=== PATIENT | female | born 1945 | race Caucasian/White ===

== ENCOUNTER 2017-12-06 16:50 | Emergency (ER) | payer MEDICARE, MEDICAID ==
[~2017-12-06] VITALS: Ht 154.9 cm; Wt 52.2 kg
[~2017-12-06 16:50] MED LIST: DIVA250T4 PO; LAMO5TAB3 PO
[2017-12-06 16:53] VITALS: BP 102/78
[2017-12-06] MEDS ORDERED: HYDROCODONE/APAP 5/325MG 1 EACH TABLET PO ONE (17:00)
[2017-12-06] MEDS ORDERED: ONDANSETRON 4 MG TAB.RAPDIS PO ONE (17:00)
[2017-12-06] MEDS ORDERED: HYDROCODONE/APAP 5/325MG 1 EACH TABLET ONE (17:04)
[2017-12-06] MEDS ORDERED: ONDANSETRON 4 MG TAB.RAPDIS ONE (17:05)
== END 2017-12-06 18:11 | disposition home or self-care (01) ==
LOC: ER 16:51
DX: S92.324A Nondisplaced fracture of second metatarsal bone, right foot, initial encounter for closed fracture (principal); G40.909 Epilepsy, unspecified, not intractable, without status epilepticus; Z98.890 Other specified postprocedural states; W01.0XXA Fall on same level from slipping, tripping and stumbling without subsequent striking against object, initial encounter; Y93.B9 Activity, other involving muscle strengthening exercises; Y92.009 Unspecified place in unspecified non-institutional (private) residence as the place of occurrence of the external cause; Y99.8 Other external cause status
CPT/HCPCS: 73630-TC; A4606; Q0162; Z7610

== ENCOUNTER 2017-12-08 14:04 | Emergency (ER) | payer MEDICARE, MEDICAID ==
[~2017-12-08] VITALS: Ht 162.6 cm; Wt 65.8 kg
--- NOTE | 2017-12-08 14:20 | NUR ---
[id number] FROM HOME FOR GENERALIZED BODY PAIN, S/P UNWITNESSED SEIZURE. FAMILY MEMBER AT AND REQUESTS PT TO BE TRANSFERRED TO A REHAB FOR DISCHARGE PT CANNOT TAKE CARE OF HERSELF. VSS. NO TRAUMA NOTED. PT AAOX3. SEEN BY MD FOR EVAL. SEZURE PRECAUTIONS IMPLEMENTED. WILL MONITOR.
[2017-12-08] MEDS ORDERED: LamoTRIgine 100 MG TABLET PO STA ×2 (15:06→15:47)
[2017-12-08] MEDS ORDERED: DIVALPROEX SODIUM 250 MG TABLET.DR PO ONE ×2 (15:17→15:30)
[2017-12-08 15:26] LABS: BASOPHILS % (AUTO) 0.5 % (0.0-2.0); EOSINOPHILS % (AUTO) 0.6 % (0.0-6.0); HEMATOCRIT 37 % (33-45); HEMOGLOBIN 12.9 g/dL (11.5-14.8); LYMPHOCYTES # (AUTO) 1.8 /CMM (0.8-4.8); LYMPHOCYTES % (AUTO) 26.8 % (20.0-44.0); MEAN CORPUSCULAR HGB CONC 35 g/dl (31.0-36.0); MEAN CORPUSCULAR VOLUME 97 fL (82-100); MONOCYTES # (AUTO) 0.4 /CMM (0.1-1.30); MONOCYTES % (AUTO) 6.2 % (2.0-12.0); NEUTROPHILS # (AUTO) 4.6 /CMM (1.8-8.9); NEUTROPHILS % (AUTO) 65.9 % (43.0-81.0); PLATELET COUNT (AUTO) 212 /CMM (150-450); RDW COEFFICIENT OF VARIATION 12.4 (11.5-15.0); RED BLOOD CELL COUNT(AUTO) 3.87 MIL/uL (4.0-5.2); WHITE BLOOD COUNT (AUTO) 6.8 K/uL (4.3-11.0)
[2017-12-08 15:35] LABS: CALCIUM, SERUM 9.1 mg/dL (8.5-10.1); CREATININE 0.9 mg/dL (0.6-1.3); POTASSIUM 4.3 mmol/L (3.5-5.1)
[2017-12-08 15:38] LABS: INR 0.91 (0.85-1.15)
--- NOTE | 2017-12-08 15:40 | NUR ---
PT TAKEN TO CT.
--- NOTE | 2017-12-08 16:30 | NUR ---
Patient is resting comfortably in bed with eyes closed. Easily aroused. VSS
--- NOTE | 2017-12-08 17:00 | NUR ---
PT'S SISTER SIMÓN AT AND GAVE HER NUMBER TO CALL HER WHEN PT IS BEING DISCHARGED FOR SIDING STAPLER.
--- NOTE | 2017-12-08 17:40 | NUR ---
CALLED PT'S SISTER SIMÓN FOR JOURNAL CLERK ACCORDING TO TO SISTER, SHE DOES NOT WANT TO JOURNAL CLERK THE PT AND WANTS THE HOSPITAL TO TRANSFER HER TO A REHAB. MD AWARE. CALLED OIL DEVELOPER.
--- NOTE | 2017-12-08 18:12 | NUR ---
Patient discharged to home in stable condition. Written and verbal after care instructions given. Patient verbalizes understanding of instruction. Sister, Susan at bedside for merchandise pickup/receiving associate.
[2017-12-08 18:14] VITALS: BP 141/65
== END 2017-12-08 18:14 | disposition home or self-care (01) ==
LOC: ER 14:08
DX: S80.01XA Contusion of right knee, initial encounter (principal); G40.909 Epilepsy, unspecified, not intractable, without status epilepticus; Z98.890 Other specified postprocedural states; W05.0XXA Fall from non-moving wheelchair, initial encounter; Y93.89 Activity, other specified; Y92.89 Other specified places as the place of occurrence of the external cause; Y99.8 Other external cause status
CPT/HCPCS: 36415; 70450; 71045; 72125; 80048; 80164; 85025; 85730; 99285; A4606; Z7610

== ENCOUNTER 2018-09-16 00:52 | Emergency (ER) | payer MEDICARE, MEDICAID ==
[~2018-09-16] VITALS: Ht 152.4 cm; Wt 52.6 kg
--- NOTE | 2018-09-16 01:00 | NUR ---
PT BIBRA C/O R WRIST PAIN S/P GLF. SKIN INTACT. -KO, -TRAUMA, DIZZINESS. PT AOX4. PT STATES "I WAS WALKING AND TRIPPED ON ACCIDENT". PT ON MONITOR IN BED 11. NAD NOTED. WILL CONTINUE TO MONITOR.
[2018-09-16] MEDS ORDERED: HYDROCODONE/APAP 5/325MG 1 EACH TABLET ONE (01:20)
--- NOTE | 2018-09-16 01:22 | NUR ---
RADIOLOGY AT BEDSIDE FOR XRAY
[2018-09-16] MEDS ORDERED: HYDROCODONE/APAP 5/325MG 1 EACH TABLET PO ONE (01:30)
--- NOTE | 2018-09-16 02:30 | NUR ---
SISTER (SIMÓN) CONTACT INFORMATION : ATTEMPTED TO CONTACT SISTER TO DEBONING TEAM LEADER PT, NO ANSWER, LEFT MESSAGE. WILL FOLLOW UP
--- NOTE | 2018-09-16 02:36 | NUR ---
SISTER (COLLIN) CONTACT INFORMATION: ATTEMPTED TO CONTACT SISTER TO JIG WORKER PT, NO ANSWER. WILL FOLLOW UP
--- NOTE | 2018-09-16 03:50 | NUR ---
ATTEMPTED TO CONTACT BOTH SISTERS TO RADIO PERFORMER PT, NO ANSWER. WILL FOLLOW UP
--- NOTE | 2018-09-16 04:17 | NUR ---
ATTEMPTED TO CALL BOTH SISTERS TO DENTAL ASSISTANT INSTRUCTOR PT, NO ANSWER. WILL FOLLOW UP
--- NOTE | 2018-09-16 05:51 | NUR ---
ATTEMPTED TO CONTACT BOTH SISTERS TO SECTION LEADER SCREEN PRINTING PT, NO ANSWER. WILL FOLLOW UP
--- NOTE | 2018-09-16 06:56 | NUR ---
ATTEMPTED TO CONTACT BOTH SISTERS TO CREDIT COLLECTION SPECIALIST PT, NO ANSWER. WILL FOLLOW UP
--- NOTE | 2018-09-16 07:03 | NUR ---
SISTER WILL COME TO CONCRETE STONE FINISHER PT AT 7:30
--- NOTE | 2018-09-16 07:27 | NUR ---
REPORT GIVEN TO YANIV SOTO RN FOR AROLDO
[2018-09-16 07:49] VITALS: BP 128/71
--- NOTE | 2018-09-16 07:49 | NUR ---
Patient discharged to home in stable condition. Written and verbal after care instructions given. Patient verbalizes understanding of instruction. Awaiting daughter for merchandise pickup/receiving associate.
== END 2018-09-16 08:26 | disposition home or self-care (01) ==
LOC: ER 00:55
DX: S52.591A Other fractures of lower end of right radius, initial encounter for closed fracture (principal); G40.909 Epilepsy, unspecified, not intractable, without status epilepticus; Z98.890 Other specified postprocedural states; W01.198A Fall on same level from slipping, tripping and stumbling with subsequent striking against other object, initial encounter; Y93.89 Activity, other specified; Y92.098 Other place in other non-institutional residence as the place of occurrence of the external cause; Y99.8 Other external cause status
CPT/HCPCS: 29125; 73110; 99283; A4606

== ENCOUNTER 2019-10-01 12:42 | Emergency (ER) | payer MEDICARE, OTHER ==
[~2019-10-01] VITALS: Ht 152.4 cm; Wt 53.5 kg
--- NOTE | 2019-10-01 12:45 | NUR ---
PT [facility]ETA [facility] HOME TO ER BED 04 C/O L SHOULDER PAIN S/P MISSING THE COUCH WHILE TRYING TO SIT DOWN. PT DENIES HEAD TRAUMA. PLACED ON MONITOR. MICHELLE MINA AT BEDSIDE FOR EVAL.
[2019-10-01] MEDS ORDERED: TRAMADOL HCL 50 MG TABLET ONE (12:52)
--- NOTE | 2019-10-01 12:55 | NUR ---
RADIOLOGY AT BEDSIDE FOR L SHOULDER/HUMERUS XRAY.
[2019-10-01] MEDS ORDERED: TRAMADOL HCL 50 MG TABLET PO ONE (13:00)
[2019-10-01] MEDS ORDERED: MORPHINE SULFATE INJ 2 MG/ML DISP.SYRIN ONE (13:28)
[2019-10-01] MEDS ORDERED: MORPHINE SULFATE INJ 2 MG/ML DISP.SYRIN IM ONE (13:30)
--- NOTE | 2019-10-01 13:45 | NUR ---
CALLED GUILLERMO ARNDT REAL ESTATE SERVICES COORDINATOR MARILYNN HECK
--- NOTE | 2019-10-01 13:58 | NUR ---
PT TO RADIOLOGY FOR L SHOULDER CT SCAN VIA [facility].
--- NOTE | 2019-10-01 15:21 | NUR ---
LESLIE ETA 45 MINUTES TRIP#[id number]
--- NOTE | 2019-10-01 16:29 | NUR ---
TRANSPORTED BACK HOME IN STABLE CONDITION.
[2019-10-01 16:30] VITALS: BP 139/59
== END 2019-10-01 16:30 | disposition home or self-care (01) ==
LOC: ER 12:47
DX: S42.212A Unspecified displaced fracture of surgical neck of left humerus, initial encounter for closed fracture (principal); G40.909 Epilepsy, unspecified, not intractable, without status epilepticus; Z98.890 Other specified postprocedural states; Z79.899 Other long term (current) drug therapy; W18.39XA Other fall on same level, initial encounter; Y93.89 Activity, other specified; Y92.89 Other specified places as the place of occurrence of the external cause; Y99.8 Other external cause status
CPT/HCPCS: 73030; 73060; 73200; 96372; 99284; J2270

== ENCOUNTER 2021-02-04 18:41 | Inpatient (IN) | payer MEDICARE, OTHER ==
[~2021-02-04] VITALS: Ht 152.4 cm; Wt 52.2 kg
[2021-02-04] MEDS ORDERED: ACETAMINOPHEN 325 MG TABLET ONE (20:28)
[2021-02-04] MEDS ORDERED: IBUPROFEN 400 MG TABLET ONE (20:29)
[2021-02-04] MEDS ORDERED: IBUPROFEN 400 MG TABLET PO ONE (20:30)
[2021-02-04] MEDS ORDERED: ACETAMINOPHEN 325 MG TABLET PO ONE (20:30)
--- NOTE | 2021-02-04 21:09 | NUR ---
TOOK OVER PT CARE. MEETA FROM HOME C/O L HAND PAIN S/P FALL. -LOC. ON MONITOR AND PULSE OX. IV INSERTED RH 20G, BLOOD COLLECTED, SENT TO LAB.
[2021-02-04] MEDS ORDERED: IV NS 0.9% 500 ML BAG IV ONE (21:30)
[2021-02-04 21:58] LABS: BASOPHILS % (AUTO) 0.4 % (0.0-2.0); EOSINOPHILS % (AUTO) 1.2 % (0.0-6.0); HEMATOCRIT 41 % (33-45); HEMOGLOBIN 13.2 g/dL (11.5-14.8); LYMPHOCYTES # (AUTO) 2.5 K/uL (0.8-4.8); LYMPHOCYTES % (AUTO) 33.5 % (20.0-44.0); MEAN CORPUSCULAR HGB CONC 33 g/dl (31.0-36.0); MEAN CORPUSCULAR VOLUME 103 fL (82-100); MONOCYTES # (AUTO) 0.6 K/uL (0.1-1.30); MONOCYTES % (AUTO) 7.7 % (2.0-12.0); NEUTROPHILS # (AUTO) 4.3 K/uL (1.8-8.9); NEUTROPHILS % (AUTO) 57.2 % (43.0-81.0); PLATELET COUNT (AUTO) 165 K/uL (150-450); RED BLOOD CELL COUNT(AUTO) 3.95 MIL/uL (4.0-5.2); WHITE BLOOD COUNT (AUTO) 7.6 K/uL (4.3-11.0)
--- NOTE | 2021-02-04 22:02 | NUR ---
EMT AT BEDSIDE FOR VOLAR 3 INCH SPLINT
[2021-02-04 22:07] LABS: BILIRUBIN,URINE NEGATIVE (NEGATIVE); COLOR,URINE YELLOW (YELLOW); LEUKOCYTE ESTERASE ,URINE MODERATE (NEGATIVE); NITRITE, URINE NEGATIVE (NEGATIVE); PH,URINE 6.5 (5.0-8.0); PROTEIN,URINE NEGATIVE (NEGATIVE); UGLUCOSE NEGATIVE (NEGATIVE); UROBILINOGEN,URINE 0.2 EU/dL (0.2)
[2021-02-04 22:12] LABS: BACTERIA,URINE 4+ /HPF (None Seen); RBC,URINE 21-50 /HPF (0-2); SQUAMOUS EPITHELIAL CELL,UR 0-2 /HPF (None Seen); WBC,URINE 51-80 /HPF (0-3)
[2021-02-04 22:13] LABS: CALCIUM OXALATE CRYSTALS,UR Many /HPF (None Seen)
[2021-02-04 22:16] LABS: CALCIUM, SERUM 8.9 mg/dL (8.5-10.1); CARBON DIOXIDE 27 mmol/L (21-32); CHLORIDE 106 mmol/L (98-107); GLUCOSE 106 mg/dL (74-106); SODIUM SERUM 141 mmol/L (136-145); UREA NITROGEN, BLOOD 23 mg/dL (7-18)
[2021-02-04 22:22] LABS: ALANINE AMINOTRANSFERASE < 6 U/L (12-78); ALBUMIN 2.9 g/dL (3.4-5.0); ALKALINE PHOSPHATASE 101 U/L (46-116); ASPARTATE AMINOTRANSFERASE 20 U/L (15-37); BILIRUBIN,DIRECT 0.1 mg/dL (0.0-0.2); BILIRUBIN,TOTAL 0.2 mg/dL (0.2-1.0); TOTAL PROTEIN, SERUM 7.6 g/dL (6.4-8.2)
[2021-02-04] MEDS ORDERED: CEFTRIAXONE 1 G in IV D5W 50 ML IV ONE (22:30)
[2021-02-04] MEDS ORDERED: CEFTRIAXONE 1GM BAG (ER ONLY) 50 ML IV ONE (22:39)
--- NOTE | 2021-02-04 22:39 | NUR ---
HALEYID SWABBED, SENT TO LAB.
[2021-02-04 22:51] LABS: BAND % (MANUAL) 2 % (0.0-5.0); BASOPHILS % (MANUAL) 0 % (0.0-2.0); EOSINOPHILS % (MANUAL) 2 % (0-4); LYMPHOCYTES % (MANUAL) 27 % (16-48); MONOCYTES % (MANUAL) 11 % (0-11.0); NEUTROPHILS % (MANUAL) 58 (42-76)
[2021-02-04] MEDS ORDERED: LamoTRIgine 100 MG TABLET PO SCH (23:00)
[2021-02-04] MEDS ORDERED: DIVALPROEX SODIUM 250 MG TABLET.DR PO ONE ×2 (23:00→23:06)
[2021-02-04] MEDS ORDERED: LamoTRIgine 100 MG TABLET ONE (23:13)
[2021-02-05] MEDS ORDERED: MAG HYDROX/AL HYDROX/SIMETH 30 ML UDC PO PRN (01:30)
[2021-02-05] MEDS ORDERED: ZOLPIDEM TARTRATE 5 MG TABLET PO PRN (01:30)
[2021-02-05] MEDS: CEFTRIAXONE 1 G in IV D5W 50 ML IV SCH (01:30)
[2021-02-05] MEDS ORDERED: Z GUARD REMEDY 2 OZ OINT TP PRN (01:30)
[2021-02-05] MEDS ORDERED: IV NS 0.9% 1,000 ML IV PRN (01:30)
[2021-02-05] MEDS ORDERED: ONDANSETRON HCL/PF 4 MG/2 ML VIAL IVP PRN (01:30)
[2021-02-05] MEDS ORDERED: MAGNESIUM HYDROXIDE 30 ML UDC PO PRN (01:30)
[2021-02-05] MEDS ORDERED: ACETAMINOPHEN 325 MG TABLET PO PRN (01:30)
[2021-02-05 04:38] LABS: BASOPHILS % (AUTO) 0.4 % (0.0-2.0); EOSINOPHILS % (AUTO) 1.3 % (0.0-6.0); HEMATOCRIT 40 % (33-45); HEMOGLOBIN 12.9 g/dL (11.5-14.8); LYMPHOCYTES # (AUTO) 3.4 K/uL (0.8-4.8); MEAN CORPUSCULAR HGB CONC 33 g/dl (31.0-36.0); MEAN CORPUSCULAR VOLUME 102 fL (82-100); MONOCYTES # (AUTO) 0.5 K/uL (0.1-1.30); MONOCYTES % (AUTO) 7.5 % (2.0-12.0); NEUTROPHILS # (AUTO) 3.2 K/uL (1.8-8.9); NEUTROPHILS % (AUTO) 43.8 % (43.0-81.0); PLATELET COUNT (AUTO) 173 K/uL (150-450); RED BLOOD CELL COUNT(AUTO) 3.88 MIL/uL (4.0-5.2); WHITE BLOOD COUNT (AUTO) 7.3 K/uL (4.3-11.0)
[2021-02-05 04:49] LABS: CALCIUM, SERUM 8.3 mg/dL (8.5-10.1); CREATININE 0.9 mg/dL (0.6-1.3); MAGNESIUM 2.1 mg/dL (1.8-2.4); PHOSPHORUS 3.2 mg/dL (2.5-4.9); POTASSIUM 4.4 mmol/L (3.5-5.1)
--- NOTE | 2021-02-05 06:40 | NUR ---
Patient is resting comfortably in bed with eyes closed. Easily aroused. WILL CONT TO MONITOR
--- NOTE | 2021-02-05 09:06 | NUR ---
PATIENT REASSESS VITAL STABLE DENIES PAIN STABLE FOR TRANSFER TO UNIT BED 325-1.
[2021-02-05] MEDS ORDERED: DIVALPROEX SODIUM 250 MG TABLET.DR PO ONE (09:09)
[2021-02-05] MEDS: DIVALPROEX SODIUM 250 MG TABLET.DR PO SCH ×3 (09:12→16:36)
--- NOTE | 2021-02-05 09:30 | NUR ---
RN NOTE PATIENT TRANSFERRED OVER TO [facility] IN STABLE CONDITION. PT IS ON RA WITH NO SOB OR RESPIRATORY DISTRESS PRESENT. A/O X3 AND ABLE TO MAKE NEEDS KNOWN. COMPLAINT OF PAIN 8/10 PRESENT ON L ARM. NO COMPLAINT OF NAUSEA. NO TRAVEL SERVICE CONSULTANT PRESENT. NO EDEMA PRESENT. PT USES WALKER AT HOME BUT CURRENTLY UNABLE TO AMBULATE DUE TO PAIN. L ARM IS IN SPLINT. ON 2GM SODIUM DIET. IV PRESENT ON R WRIST 20G AND FLUSHES WELL. LABS AND ORDERS REVIEWED. SAFETY MEASURES IN PLACE. SIDE RAILS RAISED. BED LOWERED. CALL LIGHT WITHIN REACH. WILL CONTINUE TO MONITOR.
[2021-02-05] MEDS: LamoTRIgine 100 MG TABLET PO SCH ×3 (09:50→16:36)
[2021-02-05] MEDS: MORPHINE SULFATE INJ 2 MG/ML DISP.SYRIN IV PRN ×2 (09:51→22:42)
[2021-02-05 10:00] VITALS: BP 167/76
[2021-02-05 16:00] VITALS: BP 151/75
--- NOTE | 2021-02-05 18:18 | NUR ---
RN CLOSING NOTE PT IS AWAKE IN BED RESTING. PT IS ON RA WITH NO SOB OR RESPIRATORY DISTRESS PRESENT. A/O X3 AND ABLE TO MAKE NEEDS KNOWN. NO COMPLAINT OF PAIN NO COMPLAINT OF NAUSEA. NO ROLLER MECHANIC PRESENT. NO EDEMA PRESENT. PT IS UNSTEADY GAIT AND AMBULATORY WITH ASSIST. DIAPER PRESENT. L ARM IS IN SPLINT. IV PRESENT ON R WRIST 20G AND FLUSHES WELL. LABS AND ORDERS REVIEWED. ROUTINE MESD GIVEN. SAFETY MEASURES IN PLACE. SIDE RAILS RAISED. BED LOWERED. CALL LIGHT WITHIN REACH. REPORT TO BE GIVEN TO NIGHT NURSE FOR AROLDO.
--- NOTE | 2021-02-05 20:00 | NUR ---
MS RN OPENING NOTES PATIENT RESTING IN BED, ALERT/ORIENTED X 3, PT ABLE TO MAKE NEEDS KNOWN. NO COMPLAINTS OF PAIN AT THIS TIME. PT STABLE ON RA, NO S/S OF DISTRESS OR SOB NOTED, BREATHING EVEN AND UNLABORED. RIGHT HAND IV INTACT AND FLUSHING WELL. LEFT ARM IN A SPLINT. PATIENT STATES SHE HAS NO NEEDS AT THIS TIME. SAFETY MEASURES IN PLACE: CALL LIGHT WITHIN REACH, BED LOCKED IN LOWEST POSITION, SIDE RAILS UP X 3, BED ALARM ON. WILL CONTINUE TO MONITOR PATIENT THROUGHOUT SHIFT.
[2021-02-05 20:35] VITALS: BP 156/70
[2021-02-06] MEDS: CEFTRIAXONE 1 G in IV D5W 50 ML IV SCH (00:37)
[2021-02-06] MEDS: MORPHINE SULFATE INJ 2 MG/ML DISP.SYRIN IV PRN ×2 (03:03→07:05)
[2021-02-06 06:12] LABS: BASOPHILS % (AUTO) 0.4 % (0.0-2.0); EOSINOPHILS % (AUTO) 1.3 % (0.0-6.0); HEMATOCRIT 40 % (33-45); HEMOGLOBIN 13.3 g/dL (11.5-14.8); LYMPHOCYTES # (AUTO) 2.3 K/uL (0.8-4.8); LYMPHOCYTES % (AUTO) 29.1 % (20.0-44.0); MEAN CORPUSCULAR HGB CONC 33 g/dl (31.0-36.0); MEAN CORPUSCULAR VOLUME 102 fL (82-100); MONOCYTES # (AUTO) 0.6 K/uL (0.1-1.30); MONOCYTES % (AUTO) 7.5 % (2.0-12.0); NEUTROPHILS # (AUTO) 4.9 K/uL (1.8-8.9); NEUTROPHILS % (AUTO) 61.7 % (43.0-81.0); PLATELET COUNT (AUTO) 183 K/uL (150-450); RED BLOOD CELL COUNT(AUTO) 3.92 MIL/uL (4.0-5.2)
[2021-02-06 06:34] LABS: CALCIUM, SERUM 8.8 mg/dL (8.5-10.1); CREATININE 0.9 mg/dL (0.6-1.3); PHOSPHORUS 3.3 mg/dL (2.5-4.9); POTASSIUM 4.2 mmol/L (3.5-5.1)
--- NOTE | 2021-02-06 07:23 | NUR ---
MS RN CLOSING NOTES PATIENT RESTING IN BED, ALERT/ORIENTED X 3, CONFUSED/FORGETFUL AT TIMES DURING SHIFT. PT STABLE ON RA, NO S/S OF DISTRESS OR SOB NOTED, BREATHING EVEN AND UNLABORED. RIGHT HAND IV INTACT AND RUNNING NS @ 50 ML/HR. LEFT ARM IN A SPLINT. MEDICATIONS GIVEN ORDERED, PATIENT NEEDS MET THROUGHOUT SHIFT. SAFETY MEASURES IN PLACE: CALL LIGHT WITHIN REACH, BED LOCKED IN LOWEST POSITION, SIDE RAILS UP X 3, BED ALARM ON. WILL ENDORSE TO DAY SHIFT NURSE FOR CONTINUITY OF CARE
--- NOTE | 2021-02-06 07:54 | NUR ---
MS RN OPENING NOTE PATIENT IS IN BED RESTING, PATIENT IS IN NO ACUTE DISTRESS. PATIENT IS ON ROOM AIR SATURATING WELL. SAFETY PRECAUTIONS ARE ON, BED IS LOCKED IN THE LOWEST POSITION WITH SIDE RAILS UP, CALL LIGHT WITHIN REACH. WILL CONTINUE TO MONITOR.
[2021-02-06 08:00] VITALS: BP 165/61
[2021-02-06] MEDS: CHLORHEXIDINE GLUCONATE 15 ML UDC MM SCH ×2 (09:48→17:30)
[2021-02-06] MEDS: LamoTRIgine 100 MG TABLET PO SCH ×3 (09:48→17:30)
[2021-02-06] MEDS: DIVALPROEX SODIUM 250 MG TABLET.DR PO SCH ×3 (09:48→17:31)
[2021-02-06] MEDS ORDERED: CHLO473M2 MM (14:46)
[2021-02-06] MEDS ORDERED: HYDR-3973 PO (14:46)
[2021-02-06] MEDS ORDERED: CEPH750C9 PO (14:46)
[2021-02-06] MEDS ORDERED: hydrALAZINE HCL 10 MG TABLET PO ONE (15:00)
--- NOTE | 2021-02-06 18:53 | NUR ---
MS RN CLOSING NOTE PATIENT IS IN BED RESTING, PATIENT IS IN NO ACUTE DISTRESS. PATIENT IS ON ROOM AIR SATURATING WELL. SAFETY PRECAUTIONS ARE ON, BED IS LOCKED IN THE LOWEST POSITION WITH SIDE RAILS UP, CALL LIGHT WITHIN REACH. ENDORSE PATIENT TO BALANCE SCREWHEAD POLISHER NURSE FOR AROLDO.
--- NOTE | 2021-02-06 19:15 | NUR ---
RN OPENING NOTES RECEIVED PT AWAKE IN BED, A/O X3. RESPIRATIONS EVEN/UNLABORED, ON ROOM AIR. SHE DENIES ANY PAIN OR DISCOMFORT AT THIS TIME. NOTED IV ACCESS ON R-HAND INTACT, PATENT AND FLUSHES WELL. PT IN NO ACUTE DISTRESS. SAFETY MEASURES IN PLACE, BED IN LOWEST LOCKED POSITION, S/R UP X2, CALL LIGHT WITHIN REACH. WILL CONTINUE TO MONITOR.
[2021-02-06 20:00] VITALS: BP 128/62
--- NOTE | 2021-02-07 00:30 | NUR ---
PT ENDORSED TO GPS RNTAM, FOR CONTINUITY OF CARE. PT IN STABLE CONDITION.
--- NOTE | 2021-02-07 00:45 | NUR ---
RN OPENING NOTES RECEIVED PT SLEEPING INTERMITTENTLY IN BED, NO ACUTE DISTRESS NOTED. RESPIRATIONS EQUAL AND UNLABORED. A/O X3. RESPIRATIONS EVEN/UNLABORED. STABLE ON ROOM AIR. DENIES PAIN AND/OR DISCOMFORT AT PRESENT TIME. IV ACCESS ON R-HAND INTACT AND PT IN NO ACUTE DISTRESS. LEFT ARM IN SPLINT. CAP REFILL LESS THAN 3 SEC TO EXTREMITY. SAFETY MEASURES IN PLACE, BED IN LOW AND LOCKED POSITION, SIDE RAILS UP X2, CALL LIGHT WITHIN REACH. WILL CONTINUE TO MONITOR.
[2021-02-07] MEDS: CEFTRIAXONE 1 G in IV D5W 50 ML IV SCH (01:44)
--- NOTE | 2021-02-07 07:30 | NUR ---
RN-NOTES RECEIVED PATIENT LYING IN BED AWAKE,ALERT X3,FORGETFUL AT TIMES ,NO ACUTE DISTRESS NOTED. ABLE TO MAKE NEEDS KNOWN. NEEDS MINIMAL ASSIST WITH ADL'S AND AMBULATION. WILL CONT. MONITORING FOR SAFETY.
[2021-02-07 09:26] LABS: CALCIUM, SERUM 8.6 mg/dL (8.5-10.1); CREATININE 0.9 mg/dL (0.6-1.3); PHOSPHORUS 2.7 mg/dL (2.5-4.9); POTASSIUM 3.7 mmol/L (3.5-5.1)
[2021-02-07 09:33] LABS: BASOPHILS % (AUTO) 0.5 % (0.0-2.0); EOSINOPHILS % (AUTO) 0.8 % (0.0-6.0); HEMATOCRIT 40 % (33-45); HEMOGLOBIN 13.4 g/dL (11.5-14.8); LYMPHOCYTES % (AUTO) 25.2 % (20.0-44.0); MEAN CORPUSCULAR HGB CONC 33 g/dl (31.0-36.0); MEAN CORPUSCULAR VOLUME 103 fL (82-100); MONOCYTES # (AUTO) 0.5 K/uL (0.1-1.30); NEUTROPHILS # (AUTO) 5.3 K/uL (1.8-8.9); NEUTROPHILS % (AUTO) 67.5 % (43.0-81.0); PLATELET COUNT (AUTO) 187 K/uL (150-450); RED BLOOD CELL COUNT(AUTO) 3.92 MIL/uL (4.0-5.2); WHITE BLOOD COUNT (AUTO) 7.8 K/uL (4.3-11.0)
[2021-02-07] MEDS: DIVALPROEX SODIUM 250 MG TABLET.DR PO SCH ×3 (10:41→16:22)
[2021-02-07] MEDS: LamoTRIgine 100 MG TABLET PO SCH ×3 (10:41→16:22)
[2021-02-07] MEDS: CHLORHEXIDINE GLUCONATE 15 ML UDC MM SCH ×2 (10:41→16:22)
--- NOTE | 2021-02-07 19:15 | NUR ---
MS/RN OPENING NOTE RECEIVED PATIENT RESTING IN BED. AWAKE, ALERT AND ORIENTED X 2-3. ABLE TO MAKE NEEDS KNOWN. DENIES PAIN AT THIS TIME. CONTINUES ON ROOM AIR WITH NO S/SX OF RESPIRATORY DISTRESS NOTED. IV ACCESS TO RIGHT HAND #20G INTACT, PATENT AND SALINE LOCKED. CONTINUES ON ABX ROCEPHIN FOR UTI. PATIENT IS TO DISCHARGE TODAY AT 19:30 WITH [facility]. CALL LIGHT WITHIN REACH. ASPIRATION, FALL AND SAFETY PRECAUTIONS MAINTAINED. WILL CONTINUE TO MONITOR.
[2021-02-07 20:00] VITALS: BP 135/55
--- NOTE | 2021-02-07 20:09 | NUR ---
MS/DRYWALL HANGER NOTE PATIENT DISCHARGED TO HOME VIA [facility]. IV REMOVED FROM RIGHT HAND WITH PRESSURE DRESSING APPLIED. PATIENT TOLERATED WELL. ID BAND REMOVED. REVIEWED ALL DISCHARGE PAPERWORK WITH PATIENT. DISCHARGE PAPERWORK AND BELONGINGS LIST SIGNED. ALL BELONGINGS ACCOUNTED FOR AT DISCHARGE. PATIENT LEFT FACILITY VIA GURNEY AND 2 INSTITUTION DIRECTOR. Addendum: 02/07/21 at 2016 by CRISTELA GALINDO RN VITAL SIGNS AT DISCHARGE: BP 135/55 HR 81 RR 18 T 97.8 O2 SAT 96% ON ROOM AIR
== END 2021-02-07 20:00 | disposition home or self-care (01) | DRG 563 ==
LOC: ER 18:46 → TRANSITION 02-05 02:30 → MED 02-05 08:49
PROVIDERS: ADMIT Nurse Practitioner Acute Care; ATTEND Registered Nurse
DX: S62.391A Other fracture of second metacarpal bone, left hand, initial encounter for closed fracture (principal); N39.0 Urinary tract infection, site not specified; N17.9 Acute kidney failure, unspecified; E44.0 Moderate protein-calorie malnutrition; Y92.009 Unspecified place in unspecified non-institutional (private) residence as the place of occurrence of the external cause; G40.909 Epilepsy, unspecified, not intractable, without status epilepticus; E88.09 Other disorders of plasma-protein metabolism, not elsewhere classified; Z68.22 Body mass index [BMI] 22.0-22.9, adult; Z20.822 Contact with and (suspected) exposure to COVID-19; W01.0XXA Fall on same level from slipping, tripping and stumbling without subsequent striking against object, initial encounter; Z79.899 Other long term (current) drug therapy; N28.1 Cyst of kidney, acquired; I25.10 Atherosclerotic heart disease of native coronary artery without angina pectoris; Z98.890 Other specified postprocedural states; B96.89 Other specified bacterial agents as the cause of diseases classified elsewhere
CPT/HCPCS: 36415; 70450-TC; 73130-TC; 80048-TC; 80061-TC; 80076-TC; 80164-TC; 81001; 83735-TC; 84100-TC; 84484-TC; 85025-TC; 87040-TC; 87081-TC; 87086-TC; 87186-TC; 97112-TC; 97116-TC; 97530-TC; C9803; G0378; J0696; J2270; J2405; J7030; J7040; J7060

== ENCOUNTER 2021-09-12 01:42 | Inpatient (IN) | payer MEDICARE, OTHER ==
[~2021-09-12] VITALS: Ht 154.9 cm; Wt 53.1 kg
[~2021-09-12 01:42] MED LIST changes: +CEPH750C9 PO; +CHLO473M2 MM; +HYDR-3973 PO
--- NOTE | 2021-09-12 01:47 | NUR ---
MEETA FROM [facility] C/O LOWER BACK PAIN S/P UNWITNESSED GLF "WALKER SLIPPED OUT FROM UNDER ME LANDED ON MY BUTT" -HT. NEUROCHECK DONE. LOC WNL. NO DISCOLORATION, ABNORMALITIES, EXTENSION, ROTATION, OR SHORTENING NOTED. TO EXTREMITIES. CONNECTED PT TO POX AND MONITOR. SAFETY MEASURES IN PLACE.
--- NOTE | 2021-09-12 01:55 | NUR ---
PT TAKEN TO CT VIA [facility]
--- NOTE | 2021-09-12 03:16 | NUR ---
R HAND #20G S/L PATENT AND INTACT. BLOOD AND COVID ANTIGEN COLLECTED AND SENT TO LAB
[2021-09-12] MEDS ORDERED: ONDANSETRON HCL/PF 4 MG/2 ML VIAL ONE (03:20)
[2021-09-12] MEDS ORDERED: MORPHINE SULFATE INJ 4 MG/ML DISP.SYRIN ONE (03:20)
[2021-09-12] MEDS ORDERED: MORPHINE SULFATE INJ 2 MG/ML DISP.SYRIN IM ONE (03:30)
[2021-09-12] MEDS ORDERED: ONDANSETRON HCL/PF 4 MG/2 ML VIAL IV ONE (03:30)
[2021-09-12 03:31] LABS: BASOPHILS % (AUTO) 0.3 % (0.0-2.0); EOSINOPHILS % (AUTO) 0.1 % (0.0-6.0); HEMATOCRIT 41 % (33-45); HEMOGLOBIN 13.2 g/dL (11.5-14.8); LYMPHOCYTES # (AUTO) 2.1 K/uL (0.8-4.8); LYMPHOCYTES % (AUTO) 14.3 % (20.0-44.0); MEAN CORPUSCULAR HGB CONC 33 g/dl (31.0-36.0); MEAN CORPUSCULAR VOLUME 100 fL (82-100); MONOCYTES # (AUTO) 0.9 K/uL (0.1-1.30); MONOCYTES % (AUTO) 6.1 % (2.0-12.0); NEUTROPHILS # (AUTO) 11.5 K/uL (1.8-8.9); NEUTROPHILS % (AUTO) 79.2 % (43.0-81.0); PLATELET COUNT (AUTO) 166 K/uL (150-450); RED BLOOD CELL COUNT(AUTO) 4.06 MIL/uL (4.0-5.2); WHITE BLOOD COUNT (AUTO) 14.5 K/uL (4.3-11.0)
[2021-09-12 03:50] LABS: CALCIUM, SERUM 8.7 mg/dL (8.5-10.1); CARBON DIOXIDE 27 mmol/L (21-32); CHLORIDE 106 mmol/L (98-107); CREATININE 0.8 mg/dL (0.6-1.3); GLUCOSE 125 mg/dL (74-106); POTASSIUM 4.7 mmol/L (3.5-5.1); SODIUM SERUM 140 mmol/L (136-145); UREA NITROGEN, BLOOD 26 mg/dL (7-18)
--- NOTE | 2021-09-12 04:10 | NUR ---
F/C 16 FR INSERTED WITH URINE OUTPUT; PATENT AND INTACT. URINE COLLECTED AND SENT TO LAB
--- NOTE | 2021-09-12 04:15 | NUR ---
[facility] PAGED
--- NOTE | 2021-09-12 04:20 | NUR ---
MOVE SHEET SUBMITTED.
[2021-09-12 04:24] LABS: BILIRUBIN,URINE NEGATIVE (NEGATIVE); COLOR,URINE YELLOW (YELLOW); LEUKOCYTE ESTERASE ,URINE NEGATIVE (NEGATIVE); NITRITE, URINE NEGATIVE (NEGATIVE); PROTEIN,URINE NEGATIVE (NEGATIVE); UGLUCOSE NEGATIVE (NEGATIVE); UROBILINOGEN,URINE 0.2 EU/dL (0.2)
--- NOTE | 2021-09-12 04:30 | NUR ---
PER RN SUP PT TO TRANSFER AFTER CHANGE OF SHIFT; AWAITING ROOM
[2021-09-12] MEDS ORDERED: CRAN425C6 PO (04:40)
[2021-09-12] MEDS ORDERED: MIRT-90 PO (04:40)
[2021-09-12] MEDS ORDERED: LATA2.5D2 OP (04:40)
[2021-09-12] MEDS ORDERED: MAGN400O6 GT (04:40)
--- NOTE | 2021-09-12 04:50 | NUR ---
MRSA SWAB COLLECTED VIA L NARE AND SENT TO LAB
[2021-09-12] MEDS ORDERED: Z GUARD REMEDY 4 OZ OINT TP PRN (05:00)
[2021-09-12] MEDS ORDERED: HYDROCODONE/APAP 5/325MG TABLET PO PRN (05:00)
[2021-09-12] MEDS ORDERED: MAGNESIUM HYDROXIDE 30 ML UDC PO PRN (05:00)
[2021-09-12] MEDS ORDERED: ACETAMINOPHEN 325 MG TABLET PO PRN (05:00)
--- NOTE | 2021-09-12 05:04 | NUR ---
MARY SWARTZ ON PHONE CALL WITH GUILLERMO MINA
--- NOTE | 2021-09-12 05:45 | NUR ---
RN INFORMED ABI MINA (ORTHOPEDIC WORKING WITH DR. WISDOM) OF PT FOR CONSULT VIA PHONE CALL
[2021-09-12 08:48] LABS: RBC,URINE 15-25 /HPF (0-2)
[2021-09-12 08:49] LABS: BACTERIA,URINE None seen /HPF (None Seen); SQUAMOUS EPITHELIAL CELL,UR None Seen /HPF (None Seen)
--- NOTE | 2021-09-12 09:22 | NUR ---
GOT BED 117-1
--- NOTE | 2021-09-12 09:32 | NUR ---
REPORT GIVEN TO RUSTAM JAIME OF [facility] UNIT
[2021-09-12] MEDS: LamoTRIgine 100 MG TABLET PO SCH ×4 (10:00→16:15)
[2021-09-12] MEDS: CHLORHEXIDINE GLUCONATE 15 ML UDC MM SCH ×2 (10:00→16:15)
[2021-09-12] MEDS ORDERED: TAMSULOSIN 0.4 MG CAP.SR.24H PO SCH (10:00)
[2021-09-12] MEDS: PANTOPRAZOLE 40 MG TABLET.DR PO SCH (10:00)
[2021-09-12] MEDS: DIVALPROEX SODIUM 250 MG TABLET.DR PO SCH ×4 (10:00→16:15)
--- NOTE | 2021-09-12 10:05 | NUR ---
TRANSFERRED TO BED 117 IN STABLE CONDITION
--- NOTE | 2021-09-12 10:11 | NUR ---
TETRYL BOILING TUB OPERATOR NOTE RECEIVED PATIENT VIA GURNEY FROM ER. PATIENT IS A/O X4. PATIENT IS BREATHING EVENLY AND NONLABORED ON ROOM AIR. NO SIGNS OF DISTRESS NOTED. PATIENT IS COMPLAINING OF SEVERE BACK PAIN 10/10 MOANING AND GRIMACING. WILL GIVE PRN PAIN MEDICATION ORDERED. PATIENT ASKED TO NOT HAVE ANY MEDICATION AT THIS TIME UNTIL LATER TODAY. EXPLAINED RISK AND BENEFITS PATIENT REFUSED X2. PATIENT SKINS C/D/I. PATIENT IS PLACED ON TELE MONITORING. PATIENT NOTED WITH QUARLES CATHETER DRAINING CLEAR YELLOW URINE. PATIENTS ABDOMEN SOFTER NONTENDER. LOWER EXTREMITY WEAKNESS NOTED DUE TO PAIN AND DISCOMFORT. PATIENT WAS ORIENTED TO THE ROOM AND HOW TO USED THE CALL LIGHT. SAFETY MEASURES IN PLACE BED LOW LOCKED CALL LIGHT WITHIN REACH. WILL CONTINUE TO MONITOR
[2021-09-12] MEDS: MORPHINE SULFATE INJ 2 MG/ML DISP.SYRIN IV PRN ×2 (10:17→14:35)
[2021-09-12] MEDS: IV 1/2NS 1000 ML 1,000 ML IV PRN (10:18)
[2021-09-12 10:54] VITALS: BP 155/84
[2021-09-12] MEDS: HYDROCODONE/APAP 5/325MG TABLET PO PRN (17:14)
--- NOTE | 2021-09-12 18:31 | NUR ---
RN CLOSING NOTE PATIENT LYING IN BED AWAKE. PATIENT IS A/O X4. PATIENT IS BREATHING EVENLY AND NONLABORED ON ROOM AIR. NO SIGNS OF DISTRESS NOTED. PATIENT COMPLAINED OF SEVERE BACK PAIN THROUGHOUT SHIFT, GAVE PRN MEDICATION ORDERED, MD AWARE VITALS MAINTAINED WNL. PATIENT ON TELE MONITORING. PATIENT NOTED WITH QUARLES CATHETER DRAINING CLEAR YELLOW URINE. PATIENTS HAS IV ACCESS TO L FOREARM 24 GAUGE PATENT AND INTACT RUNNING 1/2 NS @ 85 ML/HR. ALL MEDICATIONS GIVEN ORDERED. SAFETY MEASURES IN PLACE BED LOW LOCKED CALL LIGHT WITHIN REACH. WILL ENDORSE TO ONCOMING SHIFT
--- NOTE | 2021-09-12 19:37 | NUR ---
TELE OPENING NOTE PATIENT AWAKE IN BED. A/OX4. NO S/S OF DISTRESS. O2 SAT AT 89-91. SHE WAS GIVEN A NC W/ 2L BRINGING HER BACK TO 96%. RFA #24 INTACT AND PATENT W/ 1/2NS 85ML/HR. TELE MONITOR REVEALS SR93. SAFETY MEASURES IN PLACE: BED AT LOWEST POSITION, RAILS UP X2, CALL AGUILAR WITHIN REACH. WILL CONTINUE TO MONITOR PATIENT.
[2021-09-12 20:00] VITALS: BP 142/55
[2021-09-12] MEDS: TAMSULOSIN 0.4 MG CAP.SR.24H PO SCH (21:41)
[2021-09-12] MEDS: LATANOPROST EYE DROP 0.005% 2.5 ML BOTTLE OP SCH (21:42)
[2021-09-12] MEDS: MIRTAZAPINE 15 MG TABLET PO SCH (21:42)
[2021-09-12] MEDS: ONDANSETRON HCL/PF 4 MG/2 ML VIAL IVP PRN (22:26)
--- NOTE | 2021-09-12 22:30 | NUR ---
RN NOTE PATIENT WAS FOUND VOMITING. PATIENT WAS PLACED IN MID-FOWLERS POSITION, AND SHE IS CURRENTLY STABLE. ZOFRAN GIVEN (SEE eMAR). PATIENT CLEANED UP. PATIENT HAS PREVIOUSLY REFUSED TO BE REPOSITIONED, BUT SOMETIMES IS COMPLIANT; SHE IS FOR NOW IN THIS REGARD. HER O2 STARTED TO DECREASE, BUT WAS ABLE TO BE RECTIFIED BY NC 2L (96-98%). PATIENT REMOVES NC. SHE IS STILL A/OX4. SHE DOESN'T WANT MACHINES, LIKE VS MACHINE, TO BE NEAR HERE BECAUSE OF THE BEEPING, BUT I HAVE EXPLAINED TO HER THE NECESSITY OF THE MACHINE AND AM ABLE TO USE IT TO MONITOR HER. PATIENT IS MOSTLY NON-COMPLIANT. SHE IS REFUSING IVF, BUT I WILL CONTINUE TO RE-EDUCATE THE PATIENT AND ENCOURAGE HER TO UTILIZE IVF. I WILL CONTINUE TO MONITOR THE PATIENT.
[2021-09-13] VITALS: BP 123/60
[2021-09-13 04:00] VITALS: BP 147/55
--- NOTE | 2021-09-13 06:59 | NUR ---
TELE CLOSING NOTE PATIENT IS AWAKE IN BED. A/OX4. NO S/S OF DISTRESS. BREATHING W/O DIFFICULTLY. RFA #24 W/ 1/2NS@85ML/HR. TELE MONITOR REVEALS SR80. SAFETY MEASURES IN PLACE: BED AT LOWEST LEVEL, RAILS UP X2, CALL AGUILAR WITHIN REACH. WILL ENDORSE TO FOLLOWING SHIFT FOR AROLDO.
[2021-09-13 07:02] LABS: BASOPHILS % (AUTO) 0.2 % (0.0-2.0); EOSINOPHILS % (AUTO) 1.1 % (0.0-6.0); HEMATOCRIT 41 % (33-45); HEMOGLOBIN 13.2 g/dL (11.5-14.8); LYMPHOCYTES # (AUTO) 1.6 K/uL (0.8-4.8); LYMPHOCYTES % (AUTO) 16.4 % (20.0-44.0); MEAN CORPUSCULAR HGB CONC 32 g/dl (31.0-36.0); MEAN CORPUSCULAR VOLUME 103 fL (82-100); MONOCYTES # (AUTO) 0.5 K/uL (0.1-1.30); MONOCYTES % (AUTO) 5.6 % (2.0-12.0); NEUTROPHILS # (AUTO) 7.3 K/uL (1.8-8.9); NEUTROPHILS % (AUTO) 76.7 % (43.0-81.0); PLATELET COUNT (AUTO) 149 K/uL (150-450); WHITE BLOOD COUNT (AUTO) 9.5 K/uL (4.3-11.0)
[2021-09-13 07:04] LABS: CALCIUM, SERUM 8.3 mg/dL (8.5-10.1); CREATININE 0.8 mg/dL (0.6-1.3); MAGNESIUM 2.3 mg/dL (1.8-2.4); PHOSPHORUS 3.1 mg/dL (2.5-4.9); POTASSIUM 4.9 mmol/L (3.5-5.1)
--- NOTE | 2021-09-13 07:30 | NUR ---
NETWORK ASSOCIATE OPENING NOTES RECEIVED PATIENT AWAKE IN BED AND A/OX4. ON O2 AT 2LPM VIA NASAL CANNULA TOLERATING WELL. NO SOB NOTED. NOT IN DISTRESS. WITH COMPLAINTS OF PAIN AT THE SCALE OF 8/10 AT THE LOWER BACK. COMFORT MEASURES PROVIDED. WITH IV ACCESS AT RIGHT FOREARM G24 INTACT AND PATENT WITH IVF 1/2NS AT 85ML/HR INFUSING WELL. ON TELE MONITOR CURRENTLY READING SR AT 93BPM. SAFETY MEASURES IN PLACE: BED AT LOWEST POSITION, RAILS UP X2, CALL LIGHT WITHIN REACH. WILL CONTINUE TO MONITOR.
[2021-09-13 08:00] VITALS: BP 160/70
[2021-09-13] MEDS: CHLORHEXIDINE GLUCONATE 15 ML UDC MM SCH ×2 (08:23→16:44)
[2021-09-13] MEDS: LamoTRIgine 100 MG TABLET PO SCH ×3 (08:23→16:44)
[2021-09-13] MEDS: DIVALPROEX SODIUM 250 MG TABLET.DR PO SCH ×3 (08:23→16:44)
[2021-09-13] MEDS: PANTOPRAZOLE 40 MG TABLET.DR PO SCH (08:23)
[2021-09-13] MEDS: MORPHINE SULFATE INJ 2 MG/ML DISP.SYRIN IV PRN ×3 (08:32→16:03)
--- NOTE | 2021-09-13 08:32 | NUR ---
RN NOTES PATIENT IS COMPLAINING OF PAIN AT THE LOWER BACK AT THE SCALE OF 8/10 AND ASKED FOR PAIN MEDICATION. MORPHINE 4MG IV WAS GIVEN. WILL CONTINUE TO MONITOR.
[2021-09-13 12:00] VITALS: BP 101/40
[2021-09-13] MEDS: IV 1/2NS 1000 ML 1,000 ML IV PRN (15:38)
[2021-09-13 16:00] VITALS: BP 131/62
--- NOTE | 2021-09-13 18:28 | NUR ---
GUN STOCK CHECKER CLOSING NOTES PATIENT RESTING ON BED AND A/OX4. ON O2 AT 2LPM VIA NASAL CANNULA TOLERATING WELL. NO SOB NOTED. NOT IN DISTRESS. WITH NO COMPLAINTS OF PAIN AT THIS TIME. WITH IV ACCESS AT RIGHT FOREARM G24 INTACT AND PATENT WITH IVF 1/2NS AT 85ML/HR INFUSING WELL. ON TELE MONITOR CURRENTLY READING SINUS RHYTHM AT 91BPM. DUE MEDS GIVEN. WITH QUARLES CATHETER IN PLACED WITH AN OUTPUT OF 750ML. SAFETY MEASURES IN PLACE: BED AT LOWEST POSITION, RAILS UP X2, CALL LIGHT WITHIN REACH. WILL ENDORSE TO NEXT SHIFT FOR AROLDO.
--- NOTE | 2021-09-13 19:10 | NUR ---
RN NOTES RECEIVED PATIENT ON BED AWAKE AND A/O X2-3 WITH PERIODS OF CONFUSION.. ON O2 AT 2LPM VIA NASAL CANNULA TOLERATING WELL. NO SOB NOTED. NOT IN DISTRESS. WITH NO COMPLAINTS OF PAIN OR DISCOMFORT AT THIS TIME. WITH IV ACCESS AT RIGHT FOREARM G24 WITH 1/2 NS AT 85ML/HR INFUSING WELL. IV SITE IN PATENT AND INTACT. WITH QUARLES CATHETER PATENT AND DRAINING WELL. SAFETY MEASURES IN PLACED. CALL LIGHT WITHIN REACH. BED ON LOWEST LOCKED POSITION, SIDE RAILS UP X2. WILL CONTINUE TO MONITOR.
[2021-09-13 20:00] VITALS: BP 134/67
[2021-09-13] MEDS: MIRTAZAPINE 15 MG TABLET PO SCH (21:48)
[2021-09-13] MEDS: LATANOPROST EYE DROP 0.005% 2.5 ML BOTTLE OP SCH (21:48)
[2021-09-13] MEDS: TAMSULOSIN 0.4 MG CAP.SR.24H PO SCH (21:48)
[2021-09-14] VITALS: BP 123/67
[2021-09-14] MEDS: IV 1/2NS 1000 ML 1,000 ML IV PRN ×2 (02:48→17:01)
[2021-09-14 04:00] VITALS: BP 129/61
[2021-09-14 06:42] LABS: BASOPHILS # (AUTO) 0.1 K/uL (0.0-0.2); BASOPHILS % (AUTO) 0.6 % (0.0-2.0); HEMATOCRIT 38 % (33-45); HEMOGLOBIN 12.4 g/dL (11.5-14.8); LYMPHOCYTES # (AUTO) 1.8 K/uL (0.8-4.8); LYMPHOCYTES % (AUTO) 17.2 % (20.0-44.0); MEAN CORPUSCULAR HGB CONC 33 g/dl (31.0-36.0); MEAN CORPUSCULAR VOLUME 102 fL (82-100); MONOCYTES # (AUTO) 0.8 K/uL (0.1-1.30); MONOCYTES % (AUTO) 7.9 % (2.0-12.0); NEUTROPHILS # (AUTO) 7.8 K/uL (1.8-8.9); NEUTROPHILS % (AUTO) 73.3 % (43.0-81.0); PLATELET COUNT (AUTO) 92 K/uL (150-450); RED BLOOD CELL COUNT(AUTO) 3.72 MIL/uL (4.0-5.2); WHITE BLOOD COUNT (AUTO) 10.7 K/uL (4.3-11.0)
--- NOTE | 2021-09-14 06:50 | NUR ---
RN NOTES PATIENT RESTING ON BED AND A/OX2 WITH PERIODS OF CONFUSION. ON O2 AT 2LPM VIA NASAL CANNULA TOLERATING WELL. NO SOB NOTED. NOT IN DISTRESS. WITH NO COMPLAINTS OF PAIN AT THIS TIME. WITH IV ACCESS AT RIGHT FOREARM G24 INTACT AND PATENT WITH IVF 1/2NS AT 85ML/HR INFUSING WELL.ALL DUE MEDS GIVEN. WITH QUARLES CATHETER IN PLACED WITH AN OUTPUT OF 550ML. SAFETY MEASURES IN PLACE: BED AT LOWEST POSITION, RAILS UP X2, CALL LIGHT WITHIN REACH. WILL ENDORSE TO NEXT SHIFT FOR AROLDO.
[2021-09-14 07:04] LABS: CALCIUM, SERUM 7.8 mg/dL (8.5-10.1); CARBON DIOXIDE 29 mmol/L (21-32); CHLORIDE 104 mmol/L (98-107); CREATININE 0.7 mg/dL (0.6-1.3); GLUCOSE 99 mg/dL (74-106); MAGNESIUM 2.4 mg/dL (1.8-2.4); PHOSPHORUS 2.6 mg/dL (2.5-4.9); SODIUM SERUM 138 mmol/L (136-145); UREA NITROGEN, BLOOD 13 mg/dL (7-18)
[2021-09-14 07:26] LABS: EOSINOPHILS % (MANUAL) 2 % (0-4); LYMPHOCYTES % (MANUAL) 14 % (16-48); MONOCYTES % (MANUAL) 6 % (0-11.0); NEUTROPHILS % (MANUAL) 78 (42-76)
[2021-09-14] MEDS: LamoTRIgine 100 MG TABLET PO SCH ×3 (08:02→16:54)
[2021-09-14] MEDS: CHLORHEXIDINE GLUCONATE 15 ML UDC MM SCH ×2 (08:02→16:54)
[2021-09-14] MEDS: DIVALPROEX SODIUM 250 MG TABLET.DR PO SCH ×3 (08:02→16:54)
[2021-09-14] MEDS: PANTOPRAZOLE 40 MG TABLET.DR PO SCH (08:02)
[2021-09-14] MEDS: MORPHINE SULFATE INJ 2 MG/ML DISP.SYRIN IV PRN (11:36)
[2021-09-14 12:00] VITALS: BP 129/61
--- NOTE | 2021-09-14 15:15 | NUR ---
MRI APPROVED BY DR. DUNLAP, FOOD SERVICE COORDINATOR ([place]) NOTIFIED VIA TEXT.
--- NOTE | 2021-09-14 15:36 | NUR ---
RN NOTE PT WAS PICKED UP BY 2 STAFFS FOR SPINE MRI W/O CONTRAST. PT NOT IN DISTRESS. NO SOB. WILL F/U.
--- NOTE | 2021-09-14 18:05 | NUR ---
RN NOTES PATIENT RESTING ON BED. ALERT AND ORIENTED X2 WITH EPISODES OF CONFUSION. ON O2 AT 2LPM VIA NASAL CANNULA TOLERATING WELL. MEDICATED FOR PAIN 1X THIS SHIFT WITH GOOD EFFECT. WITH IV ACCESS AT RIGHT FOREARM G24 PATENT WITH IVF 1/2NS AT 85ML/HR INFUSING WELL. ALL DUE MEDS GIVEN. QUARLES CATHETER IN PLACED WITH AN OUTPUT OF 1100ML. SAFETY MEASURES IN PLACE. NEEDS ATTENDED.
[2021-09-14 20:00] VITALS: BP 133/67
[2021-09-14] MEDS: LATANOPROST EYE DROP 0.005% 2.5 ML BOTTLE OP SCH (21:41)
[2021-09-14] MEDS: TAMSULOSIN 0.4 MG CAP.SR.24H PO SCH (21:41)
[2021-09-14] MEDS: MIRTAZAPINE 15 MG TABLET PO SCH (21:41)
[2021-09-15 04:00] VITALS: BP 115/67
[2021-09-15 05:35] VITALS: BP 127/63
[2021-09-15] MEDS: IV 1/2NS 1000 ML 1,000 ML IV PRN ×2 (06:14→20:20)
[2021-09-15 06:51] LABS: BASOPHILS % (AUTO) 0.2 % (0.0-2.0); EOSINOPHILS % (AUTO) 0.8 % (0.0-6.0); HEMATOCRIT 38 % (33-45); HEMOGLOBIN 12.4 g/dL (11.5-14.8); LYMPHOCYTES # (AUTO) 2.1 K/uL (0.8-4.8); LYMPHOCYTES % (AUTO) 18.6 % (20.0-44.0); MEAN CORPUSCULAR HGB CONC 33 g/dl (31.0-36.0); MEAN CORPUSCULAR VOLUME 100 fL (82-100); MONOCYTES # (AUTO) 1.1 K/uL (0.1-1.30); MONOCYTES % (AUTO) 10.2 % (2.0-12.0); NEUTROPHILS # (AUTO) 7.8 K/uL (1.8-8.9); NEUTROPHILS % (AUTO) 70.2 % (43.0-81.0); PLATELET COUNT (AUTO) 134 K/uL (150-450); RED BLOOD CELL COUNT(AUTO) 3.79 MIL/uL (4.0-5.2); WHITE BLOOD COUNT (AUTO) 11.1 K/uL (4.3-11.0)
[2021-09-15 07:26] LABS: CALCIUM, SERUM 8.3 mg/dL (8.5-10.1); CARBON DIOXIDE 30 mmol/L (21-32); CHLORIDE 107 mmol/L (98-107); CREATININE 0.7 mg/dL (0.6-1.3); GLUCOSE 113 mg/dL (74-106); MAGNESIUM 2.4 mg/dL (1.8-2.4); PHOSPHORUS 2.8 mg/dL (2.5-4.9); POTASSIUM 4.2 mmol/L (3.5-5.1); SODIUM SERUM 141 mmol/L (136-145); UREA NITROGEN, BLOOD 12 mg/dL (7-18)
--- NOTE | 2021-09-15 07:55 | NUR ---
RN OPENING NOTE PATIENT RESTING ON BED. ALERT AND ORIENTED X2 WITH EPISODES OF CONFUSION. ON O2 AT 2LPM VIA NASAL CANNULA TOLERATING WELL. WITH IV ACCESS AT RIGHT FOREARM G24 PATENT WITH IVF 1/2NS AT 85ML/HR INFUSING WELL. ALL SAFETY MEASURES NOTED AND ACCOUNTED FOR. BED IN LOWEST POSITION AND LOCKED IN PLACE. SIDE RAILS UP X3. CALL LIGHT WITHIN REACH. SAFETY MEASURES IN PLACE. WILL CONTINUE TO MONITOR.
[2021-09-15] MEDS: LamoTRIgine 100 MG TABLET PO SCH ×3 (09:11→17:25)
[2021-09-15] MEDS: CHLORHEXIDINE GLUCONATE 15 ML UDC MM SCH ×2 (09:11→17:25)
[2021-09-15] MEDS: DIVALPROEX SODIUM 250 MG TABLET.DR PO SCH ×3 (09:11→17:25)
[2021-09-15] MEDS: PANTOPRAZOLE 40 MG TABLET.DR PO SCH (09:16)
[2021-09-15 12:00] VITALS: BP 143/69
[2021-09-15] MEDS: MORPHINE SULFATE INJ 2 MG/ML DISP.SYRIN IV PRN ×2 (13:19→18:29)
--- NOTE | 2021-09-15 18:40 | NUR ---
RN CLOSING NOTE PATIENT REMAINED STABLE THROUGHOUT SHIFT. PATIENT RESTING ON BED. ALERT AND ORIENTED X3. ON O2 AT 2LPM VIA NASAL CANNULA TOLERATING WELL. WITH IV ACCESS AT RIGHT FOREARM G24 PATENT WITH IVF 1/2NS AT 85ML/HR INFUSING WELL. PATIENT HAS QUARLES CATH PATENT AND INTACT DRAINING CLEAR YELLOW URINE. ALL NEEDS MET AND MEDS ADM PER MD ORDER. ALL SAFETY MEASURES NOTED AND ACCOUNTED FOR. BED IN LOWEST POSITION AND LOCKED IN PLACE. SIDE RAILS UP X3. CALL LIGHT WITHIN REACH. SAFETY MEASURES IN PLACE. WILL ENDORSE TO SHIP FITTER RN.
--- NOTE | 2021-09-15 20:40 | NUR ---
RN OPENING NOTES: RECEIVED PATIENT SLEEP IN BED COMFORTABLY, AROUSABLE TO VERBAL STIMULI. BED IN LOW POSITION CALL LIGHTS WITHIN REACH, NO COMPLAIN OF PAIN AND DISCOMFORT AT THIS TIME, WITH IV LINE AT RFA#20 WITH ONGOING 1/2 NSS@85ML PER HOUR INFUSING WELL, PATIENT KEPT CLEAN AND DRY ALL NEEDS MET WILL CONTINUE TO MONITOR.
[2021-09-15] MEDS: MIRTAZAPINE 15 MG TABLET PO SCH (22:00)
[2021-09-15] MEDS: TAMSULOSIN 0.4 MG CAP.SR.24H PO SCH (22:00)
--- NOTE | 2021-09-15 22:30 | NUR ---
MS RN NOTE NURSE CATRACHITA NOTED PT VOMITED MODERATE AMOUNT GREENISH IN COLOR WITH FOOD PARTICALS. B/P 94/50 NOTED HR 122. PT NOTED ALOC. ALSO PT TRYING TO VOMIT MORE.
[2021-09-15] MEDS: ONDANSETRON HCL/PF 4 MG/2 ML VIAL IVP PRN (22:38)
--- NOTE | 2021-09-15 22:40 | NUR ---
MS RN NOTE ZOFRAN 4 MG IVP GIVEN. FOR N/V. CLEANED THE PT. PT IS RESPONSIVE TO PAINFUL STIMULI. BS CHECKED 130. CLEANED THE PT. B/P CAME UP TO 120/49. O2 15 VIA NRB MASK APPLIED O2 SAT CAME UP TO 98%. FORM 87% EARLIER.
--- NOTE | 2021-09-15 22:50 | NUR ---
RN NOTES: BLOOD SUGAR CHECK TAKEN AT 130
[2021-09-15 23:08] LABS: ABG BASE EXCESS -0.8 mmol/L; ABG OXYGEN SATURATION 95.9 % (92.0-98.5); ABG PCO2 31.8 mmHg (35.0-45.0); ABG PH 7.462 (7.350-7.450); ABG PO2 78.1 mmHg (75.0-100.0); AaDO2 603.1 mmHg; COHb 0.3 % (0.5-1.5); MetHb 0.3 % (0.0-1.5); O2Hb 95.3 % (94.0-97.0); SITE, ABG Left Radial; VENT MODE, BG 100% NRB
[2021-09-15] MEDS ORDERED: CT SWABBABLE VALVE TRANS SET 1 EA INFUS.SET MC ONE (23:11)
[2021-09-15] MEDS ORDERED: IOHEXOL-350 100 ML VIAL IV ONE (23:11)
[2021-09-15] MEDS ORDERED: LORAZEPAM INJ 2 MG/ML VIAL IV PRN (23:30)
--- NOTE | 2021-09-15 23:30 | NUR ---
RN NOTES: MEDICATION AT 2200 NOT GIVEN DUE TO PATIENT CONDITION CHANGE, RAPID RESPONSE DONE, MEDICATION RETURN TO [facility]
--- NOTE | 2021-09-15 23:55 | NUR ---
RN NOTES: PATIENT WAS FOUND WITH VOMITUS FOOD , LETHARGIC AT 2230, PRN ZOFRAN WAS GIVEN AT 2238, V/S CHECK BP-96/49, HR-120, 02 SAT 84%, RR-20, PATIENT WAS PLACED TO FACE MASK AT 15LPM THEN TO NONE REBREATHER MASK AT 15LPM,, CALLED RAPID RESPONSE AT 2250, ICU NURSE UMA, LIZABETH AGUILERA MADE AWARE AND CAME IN ORDERED ABG, STAT EKG, CHEST X RAY, [address] OF HEAD AND BACK AT 2324, ORDERED URINALYSIS WITH URINE CULTURE, LIZABETH AGUILERA MADE AWARE, AND ORDER TO REMAIN TO ROMIE ON CLOSE MONITORING, MOST RECENT VITALS WAS TAKEN 0015 BP- 118/56, HR-123, RR- 28, ON NONE REBREATHER MASK AT 15LPM, O2 SAT AT 95% TEMP -101.8, PATIENT ON TELE MONITORING ST-124, ON CLOSE MONITORING.
[2021-09-16] MEDS ORDERED: ACETAMINOPHEN 650 MG/SUPP.RECT RC PRN
--- NOTE | 2021-09-16 | NUR ---
ROMIE RN NOTE URINE SPECIMEN COLLECTED BY ICU NURSE JERAMIE FOR UA AND URINE CX PER MD ORDERS AND SENT TO LAB. WILL FOLLOW UP
--- NOTE | 2021-09-16 00:10 | NUR ---
RN NOTES: PATIENT HAS TEMP-101.2 COOLING MEASURES DONE TSB, PATIENT WAS GIVEN SUPPOSITORIES 650MG VIA RECTAL WILL CONTINUE TO MONITOR.
--- NOTE | 2021-09-16 00:15 | NUR ---
ROMIE RN NOTE PER WILLY PARISI AIRPORT OPERATIONS CREW MEMBER PT STATUS CHANGED TO ROMIE.
[2021-09-16 00:20] VITALS: BP 118/56
[2021-09-16 01:05] LABS: COLOR,URINE ORANGE (YELLOW)
[2021-09-16 01:06] LABS: PROTEIN,URINE 3+ mg/dl (NEGATIVE)
[2021-09-16 01:07] LABS: BILIRUBIN,URINE NEGATIVE (NEGATIVE); UGLUCOSE NEGATIVE (NEGATIVE)
[2021-09-16 01:08] LABS: LEUKOCYTE ESTERASE ,URINE LARGE (NEGATIVE); NITRITE, URINE POSITIVE (NEGATIVE); UROBILINOGEN,URINE 0.2 EU/dL (0.2)
[2021-09-16 01:09] LABS: RBC,URINE 21-50 /HPF (0-2); WBC,URINE TOO NUMEROUS TO COUN /HPF (0-3)
[2021-09-16 01:10] LABS: BACTERIA,URINE Many /HPF (None Seen); SQUAMOUS EPITHELIAL CELL,UR Few /HPF (None Seen)
--- NOTE | 2021-09-16 01:25 | NUR ---
SLOTTER OPERATOR. PT WAS ALOC ROMIE RN ACTIVATED PLATE STRAIGHTENER. MT ASSESSMENT PT WAS VERY LETHARGIC , RESPOND IS VERY MINIMAL LT HAND FLACCID . ORDERED CT HEAD, CHEST X RAY, F/C URINE FOUND PUS. URINE SEND FOR U/A AND C/S. TEMPERATURE WAS AXILLARY 101.8, TYLENOL SUPPOSITORY ORDERED. AFTER CT SCAN, I SPOKE WITH RYAN PARISI, LIZABETH KEEP THE PT TO TELE STATUS ORDERED.
--- NOTE | 2021-09-16 01:30 | NUR ---
RN NOTE PT RESPONDING NOW, ALERT AND ORIENTED X3. PT ABLE TO FOLLOW COMMANDS. CAN MOVE ALL EXTREMITIES. NO SIGNS OF DISTRESS. PERSONAL LINES ADVISOR PARISI AT BEDSIDE. WILL CONTINUE TO MONITOR. CALL LIGHT WITHIN REACH.
[2021-09-16] MEDS: LATANOPROST EYE DROP 0.005% 2.5 ML BOTTLE OP SCH ×2 (01:43→22:02)
[2021-09-16] MEDS ORDERED: CEFTRIAXONE 1 G in IV D5W 50 ML IV SCH (02:00)
[2021-09-16] MEDS ORDERED: CEFTRIAXONE 1 G VIAL ONE (02:42)
[2021-09-16 04:00] VITALS: BP 95/41
[2021-09-16] MEDS: MORPHINE SULFATE INJ 2 MG/ML DISP.SYRIN IV PRN ×2 (05:03→15:04)
--- NOTE | 2021-09-16 05:11 | NUR ---
RN NOTE PT COMPLAINED OF SEVERE BACK PAIN. MORPHINE IVP GIVEN ORDERED. PT ON O2 VIA NC AT 4L. DENIES ANY SOB. SATING 94%. WILL CONTINUE TO MONITOR.
--- NOTE | 2021-09-16 07:15 | NUR ---
RN NOTE PT AWAKE. ALERT AND ORIENTED X 3. PT STILL COMPLAINED OF BACK PAIN. WITH MILD RELIEF ON MORPHINE. ON TELE MONITORING, SR WITH HR OF 98. CONTINUE ON IVFLUIDS OF 1/2 NS AT 85ML/HR. INFUSING WELL ON MIDLINE NO SIGNS OF INFILTRATION. QUARLES IN PLACE, DRAINING CLEAR URINE OUTPUT. NEEDS WERE ATTENDED. ALL SAFETY MEASURES MAINTAINED. ENDORSED TO NEXT SHIFT NURSE FOR AROLDO.
--- NOTE | 2021-09-16 07:27 | NUR ---
RN OPENING NOTE RECEIVED PT AWAKE. ALERT AND ORIENTED X 3. ON TELE MONITORING, SR WITH HR OF 98. CONTINUE ON IV FLUIDS OF 1/2 NS AT 85ML/HR. INFUSING WELL ON MIDLINE NO SIGNS OF INFILTRATION. QUARLES IN PLACE, DRAINING CLEAR URINE OUTPUT. NEEDS WERE ATTENDED. ALL SAFETY MEASURES IN PLACE, BED IN LOWEST LOCKED POSITION, SR UPX3, CALL LIGHT WITHIN REACH. WILL CONTINUE TO MONITOR THROUGHOUT SHIFT.
[2021-09-16 07:32] LABS: CALCIUM, SERUM 7.9 mg/dL (8.5-10.1); CREATININE 1.1 mg/dL (0.6-1.3); MAGNESIUM 1.6 mg/dL (1.8-2.4); PHOSPHORUS 2.2 mg/dL (2.5-4.9); POTASSIUM 3.4 mmol/L (3.5-5.1)
[2021-09-16 07:39] LABS: BASOPHILS % (AUTO) 0.1 % (0.0-2.0); HEMATOCRIT 33 % (33-45); HEMOGLOBIN 10.5 g/dL (11.5-14.8); LYMPHOCYTES # (AUTO) 0.7 K/uL (0.8-4.8); LYMPHOCYTES % (AUTO) 3.3 % (20.0-44.0); MEAN CORPUSCULAR HGB CONC 32 g/dl (31.0-36.0); MEAN CORPUSCULAR VOLUME 102 fL (82-100); MONOCYTES # (AUTO) 1.2 K/uL (0.1-1.30); MONOCYTES % (AUTO) 5.5 % (2.0-12.0); NEUTROPHILS # (AUTO) 19.3 K/uL (1.8-8.9); NEUTROPHILS % (AUTO) 91.1 % (43.0-81.0); PLATELET COUNT (AUTO) 106 K/uL (150-450); RED BLOOD CELL COUNT(AUTO) 3.23 MIL/uL (4.0-5.2); WHITE BLOOD COUNT (AUTO) 21.1 K/uL (4.3-11.0)
[2021-09-16] MEDS: PANTOPRAZOLE 40 MG TABLET.DR PO SCH (07:46)
[2021-09-16 08:26] LABS: BAND % (MANUAL) 18 % (0.0-5.0); LYMPHOCYTES % (MANUAL) 8 % (16-48); METAMYELOCYTES % 1 % (0-0); MONOCYTES % (MANUAL) 4 % (0-11.0); MYELOCYTES % 1 % (0-0); NEUTROPHILS % (MANUAL) 68 (42-76)
[2021-09-16] MEDS: LamoTRIgine 100 MG TABLET PO SCH ×3 (08:50→16:27)
[2021-09-16] MEDS: CHLORHEXIDINE GLUCONATE 15 ML UDC MM SCH ×2 (08:50→16:28)
[2021-09-16] MEDS: DIVALPROEX SODIUM 250 MG TABLET.DR PO SCH ×3 (08:50→16:28)
[2021-09-16] MEDS ORDERED: HYDR-3973 PO (09:07)
[2021-09-16] MEDS ORDERED: IV NS 0.9% 1,000 ML IV ONE (09:30)
[2021-09-16] MEDS ORDERED: POTASSIUM CHLORIDE 20 MEQ TAB.PRT.SR PO SCH (10:00)
[2021-09-16] MEDS ORDERED: K PHOS NEUTRAL 250 MG TABLET PO ONE (10:00)
[2021-09-16] MEDS ORDERED: MAGNESIUM OXIDE 400 MG TABLET PO ONE (10:00)
[2021-09-16] MEDS: IV NS 0.9% 1,000 ML IV SCH (10:09)
[2021-09-16] MEDS: POTASSIUM PHOSPHATE MM 15 MMOL in IV NS 0.9% 250 ML IV SCH ×2 (11:54→15:05)
[2021-09-16 12:00] VITALS: BP 111/51
--- NOTE | 2021-09-16 15:16 | NUR ---
RN NOTE PT PULLED MIDLINE, ORDERED RESTRAINTS. PT DOES NOT TOLERATE POTASSIUM WITH HAND IV. HOLDING POTASSIUM UNTIL MIDLINE INSERTION.
--- NOTE | 2021-09-16 19:05 | NUR ---
RN CLOSING NOTE\ Addendum: 09/16/21 at 1908 by JOHAN BILLS RN PT IS ASLEEP IN BED. NO S/S OF RESP DISTRESS OR C/O OF PAIN AT THIS TIME. PT IS A/O X1-2. PT HAS NEW BUZZ MIDLINE WITH NS AT 85 ML/HR, FLUSHING WELL. PT TOLERATED ALL TREATMENTS WITH NEEDS ATTENDED TO. PT IS ON 6L NC SATING AT 98%. ALL SAFETY MEASURE SIN PLACE, BED IN LOWEST LOCKED POSITION, SR UP X3, CALL LIGHT WITHIN REACH, WILL ENDORSE TO ONCOMING LABORATORY CHEMICAL ASSISTANT NURSE FOR AROLDO.
[2021-09-16 20:00] VITALS: BP 131/69
--- NOTE | 2021-09-16 20:00 | NUR ---
ROMIE RN NOTE PT IN BED AWAKE. A/O X 2, MALT[place] SPEAKING. NO SOB NO DISTRESS OR DISCOMFORT NOTED. DENIES PAIN. ON O2 6L VIA N/C 97%. BUZZ MIDLINE #18 G INFUSING 1/2 NS AT 85 ML/HR, NO S/S OF INFILTRATION NOTED. LT HAND SL #18 G INTACT AND PATENT. F/C INTACT AND PATENT DRAINING YELLOWISH COLOR URINE SIDE RAILS UP X 2 AND CALL LIGHT WITHIN REACH. VSS. CONTINUE TO MONITOR HER. Addendum: 09/16/21 at 2126 by JUDITH DAMON RN ON TELE SR/ST 100.
[2021-09-16] MEDS: MIRTAZAPINE 15 MG TABLET PO SCH (22:00)
[2021-09-16] MEDS: TAMSULOSIN 0.4 MG CAP.SR.24H PO SCH (22:00)
[2021-09-17] VITALS: BP 105/47
[2021-09-17 04:00] VITALS: BP 123/51
[2021-09-17] MEDS: IV NS 0.9% 1,000 ML IV SCH (04:28)
--- NOTE | 2021-09-17 06:56 | NUR ---
ROMIE RN NOTE PT IN BED AWAKE. GETS CONFUSED AT TIMES. IVF INFUSING WELL BUZZ. NO S/S OF INFILTRATION NOTED. PT ACCIDENTLY PULLED OUT SL FROM LT HAND. NO BLEEDING NOTED. WILL ENDORSE TO DAY SHIFT NURSE FOR CONTINUE TO CARE.
[2021-09-17 07:13] LABS: CALCIUM, SERUM 7.2 mg/dL (8.5-10.1); CREATININE 0.8 mg/dL (0.6-1.3); PHOSPHORUS 2.9 mg/dL (2.5-4.9); POTASSIUM 4.2 mmol/L (3.5-5.1)
--- NOTE | 2021-09-17 08:00 | NUR ---
ROMIE RN noted received patient in bed awake with confusion, on O2 via NC at 4l/min, no SOB noted, O2 sat 100%, on tele monitor sinus tachy HR 100RUA midline intact and flushed well, bed lowest and locked position, call light within reach, norco was given for back pain BP 135/58, will continue to monitor
[2021-09-17] MEDS: CHLORHEXIDINE GLUCONATE 15 ML UDC MM SCH ×2 (08:04→16:25)
[2021-09-17] MEDS: DIVALPROEX SODIUM 250 MG TABLET.DR PO SCH ×3 (08:04→16:25)
[2021-09-17] MEDS: PANTOPRAZOLE 40 MG TABLET.DR PO SCH (08:04)
[2021-09-17] MEDS: CEFTRIAXONE 2 G in IV D5W 100 ML IV SCH (08:04)
[2021-09-17] MEDS: LamoTRIgine 100 MG TABLET PO SCH ×3 (08:04→16:25)
[2021-09-17 08:40] LABS: BASOPHILS % (AUTO) 0.2 % (0.0-2.0); EOSINOPHILS % (AUTO) 0.2 % (0.0-6.0); HEMATOCRIT 35 % (33-45); HEMOGLOBIN 11.1 g/dL (11.5-14.8); LYMPHOCYTES # (AUTO) 1.4 K/uL (0.8-4.8); MEAN CORPUSCULAR HGB CONC 32 g/dl (31.0-36.0); MEAN CORPUSCULAR VOLUME 102 fL (82-100); MONOCYTES # (AUTO) 1.1 K/uL (0.1-1.30); MONOCYTES % (AUTO) 5.6 % (2.0-12.0); NEUTROPHILS # (AUTO) 17.9 K/uL (1.8-8.9); PLATELET COUNT (AUTO) 135 K/uL (150-450); WHITE BLOOD COUNT (AUTO) 20.5 K/uL (4.3-11.0)
--- NOTE | 2021-09-17 10:00 | NUR ---
ROMIE RN NOTE RIUNDS MADE ,ALL NEEDS ATTENDED NOT IN DISTRESS
[2021-09-17 12:00] VITALS: BP 114/73
[2021-09-17] MEDS: ENSURE ENLIVE 237 ML LIQUID (VANILLA) PO SCH ×2 (12:03→17:16)
--- NOTE | 2021-09-17 12:30 | NUR ---
ROMIE RN NOTE FAMILY AT BEDSIDE TRYING TO FEED PATIENT , ALL NEEDS ATTENDED, CONT TO MONITOR
--- NOTE | 2021-09-17 14:23 | NUR ---
ROMIE RN notes RN WELDING MACHINE OPERATOR ELECTROSLAG Jennifer notified [facility]BC 20.5 awaiting for the back brace to deliver, charge nurse to call company again, physical therapy notified
--- NOTE | 2021-09-17 15:49 | NUR ---
ROMIE JAIME notes patient continue screaming and yelling and restless, called Jennifer RN/BIRD SITTER with order of ativan 0.5 mg IV x 1 , order carried out Addendum: 09/17/21 at 1629 by ELBERT SHERMAN RN Ativan 0.5mg ivp given as ordered saturation 96% bp 122/78
[2021-09-17 16:00] VITALS: BP 122/61
[2021-09-17] MEDS ORDERED: LORAZEPAM INJ 2 MG/ML VIAL IV ONE (16:00)
[2021-09-17] MEDS: DOCUSATE SODIUM 100 MG CAPSULE PO SCH ×2 (16:25→16:35)
--- NOTE | 2021-09-17 18:39 | NUR ---
ROMIE RN notes patient in bed resting comfortable, no SOB noted,call light within reach, taylor catheter in place patent , well draing, BUZZ midline patent [place].all needs met. will continue to monitor
--- NOTE | 2021-09-17 19:55 | NUR ---
RN NOTE PATIENT AWAKE, ALERT, AND ORIENTED X2. ON O2 4L VIA NASAL CANNULA. PATIENT SCREAMING AT TIMES, CALM ENVIRONMENT PROVIDED. NEEDS ATTENDED. NO S/S OF PAIN QUARLES CATH DRAINING VIA GRAVITY. BUZZ MIDLINE, SL. FLUSHED ASEPTICALLY. BED LOCKED AND IN LOWEST POSITION. SAFETY MEASURES MAINTAINED. CALL LIGHT WITHIN REACH.
[2021-09-17 20:00] VITALS: BP 132/62
[2021-09-17] MEDS: MIRTAZAPINE 15 MG TABLET PO SCH (21:05)
[2021-09-17] MEDS: TAMSULOSIN 0.4 MG CAP.SR.24H PO SCH (21:06)
[2021-09-17] MEDS: LATANOPROST EYE DROP 0.005% 2.5 ML BOTTLE OP SCH (21:07)
[2021-09-17] MEDS ORDERED: MAGNESIUM OXIDE 400 MG TABLET PO SCH (22:00)
[2021-09-18] VITALS: BP 97/50
[2021-09-18 04:00] VITALS: BP 146/70
--- NOTE | 2021-09-18 07:10 | NUR ---
RN OPENING NOTES RECEIVED PT AWAKE, A/O X2. ON O2 4L VIA NASAL CANNULA. SCREAMING AT TIMES. CALM ENVIRONMENT PROVIDED. QUARLES CATH DRAINING VIA GRAVITY. BUZZ MIDLINE INTACT, PATENT AND FLUSHED. SAFETY MEASURES IMPLEMENTED. CALL LIGHT WITHIN REACH. BED LOCKED AND IN LOWEST POSITION WITH SIDE RAILS UP X2. WILL CONTINUE TO MONITOR.
--- NOTE | 2021-09-18 07:22 | NUR ---
RN NOTE PATIENT RESTING IN BED. ON O2 4L VIA NASAL CANNULA, O2 SAT WNL. NO S/S OF PAIN. QUARLES CATH OUTPUT 700CC. BUZZ MIDLINE PATENT AND INTACT, SL. DUE MEDS GIVEN ORDERED. KEPT CLEAN AND DRY. BED LOCKED AND IN LOWEST POSITION. SAFETY MEASURES MAINTAINED. CALL LIGHT WITHIN REACH. ENDORSED TO AM SHIFT.
[2021-09-18 07:27] LABS: BASOPHILS % (AUTO) 0.1 % (0.0-2.0); EOSINOPHILS % (AUTO) 1.6 % (0.0-6.0); HEMATOCRIT 34 % (33-45); HEMOGLOBIN 10.8 g/dL (11.5-14.8); LYMPHOCYTES # (AUTO) 1.7 K/uL (0.8-4.8); LYMPHOCYTES % (AUTO) 12.7 % (20.0-44.0); MEAN CORPUSCULAR HGB CONC 32 g/dl (31.0-36.0); MEAN CORPUSCULAR VOLUME 103 fL (82-100); MONOCYTES # (AUTO) 0.7 K/uL (0.1-1.30); MONOCYTES % (AUTO) 5.6 % (2.0-12.0); NEUTROPHILS # (AUTO) 10.7 K/uL (1.8-8.9); PLATELET COUNT (AUTO) 105 K/uL (150-450); RED BLOOD CELL COUNT(AUTO) 3.32 MIL/uL (4.0-5.2); WHITE BLOOD COUNT (AUTO) 13.4 K/uL (4.3-11.0)
[2021-09-18 07:53] LABS: CALCIUM, SERUM 8.1 mg/dL (8.5-10.1); CREATININE 0.7 mg/dL (0.6-1.3)
[2021-09-18] MEDS: LamoTRIgine 100 MG TABLET PO SCH ×3 (08:46→16:57)
[2021-09-18] MEDS: DOCUSATE SODIUM 100 MG CAPSULE PO SCH ×2 (08:47→16:57)
[2021-09-18] MEDS: CHLORHEXIDINE GLUCONATE 15 ML UDC MM SCH ×2 (08:47→16:57)
[2021-09-18] MEDS: PANTOPRAZOLE 40 MG TABLET.DR PO SCH (08:47)
[2021-09-18] MEDS: DIVALPROEX SODIUM 250 MG TABLET.DR PO SCH ×3 (08:47→16:57)
[2021-09-18] MEDS: CEFTRIAXONE 2 G in IV D5W 100 ML IV SCH (08:48)
[2021-09-18] MEDS: ENSURE ENLIVE 237 ML LIQUID (VANILLA) PO SCH ×2 (08:49→16:59)
--- NOTE | 2021-09-18 10:21 | NUR ---
FOLLOW UP WITH [facility] [phone] REGARDING TLC BRACE,LEFT MESSAGE AGAIN ,NO RESPONSE,DATA INTEGRITY SPECIALIST AUGUSTIN MADE AWARE.
--- NOTE | 2021-09-18 10:58 | NUR ---
PER AUGUSTIN CM SNF CAN FF UP TLC .RELAYED TO JEFFREY GORDON
--- NOTE | 2021-09-18 10:59 | NUR ---
PER JEFFREY NEED TLC PRIOR TO DC SHE WILL TALK TO CM.WILL CONTINUE TO FOLLOWUP.
[2021-09-18 12:00] VITALS: BP 122/60
--- NOTE | 2021-09-18 13:01 | NUR ---
per Criselda Orozco new number for [facility] [phone],per cm they notified them,placed ambulance on will call,will continue to follw up
[2021-09-18] MEDS: HYDROCODONE/APAP 5/325MG TABLET PO PRN (16:00)
--- NOTE | 2021-09-18 16:05 | NUR ---
PER MIHIR SUN [facility] DOESNT COME TO [facility] ANYMORE,NEW VEND[facility] WILL COME [facility] TO DELIVER THE TLC BRACE.
--- NOTE | 2021-09-18 19:09 | NUR ---
RN CLOSING NOTES NO SIGNIFICANT CHANGES THROUGHOUT THE SHIFT. NO SOB OR ANY DISTRESS. ALL DUE MEDS GIVEN. NEEDS ATTENDED. KEPT CLEAN AND COMFORTABLE. SAFETY MEASURES IMPLEMENTED. ENDORSED TO NIGHT RN FOR AROLDO.
--- NOTE | 2021-09-18 19:10 | NUR ---
RN NOTE RECEIVED PATIENT IN BED RESTING ALERT ORIENTED X2 FORGETFUL VERBALLY RESPONSIVE ON 4L OXYGEN VIA NASAL CANNULA O2:97% IV SITE ON RIGHT UPPER ARM MIDLINE INTACT PATENT,QUARLES CATHETER IN PLACE URINE DRAINING YELLOW AND CLEAR BY GRAVITY,SAFETY MEASURE IMPLEMENT BED IN LOW POSITION AND LOCKED CALL LIGHT WITHIN REACH CONTINUE TO MONITOR.
[2021-09-18 20:00] VITALS: BP 133/69
[2021-09-18] MEDS: MIRTAZAPINE 15 MG TABLET PO SCH (21:44)
[2021-09-18] MEDS: TAMSULOSIN 0.4 MG CAP.SR.24H PO SCH (21:44)
[2021-09-18] MEDS: LATANOPROST EYE DROP 0.005% 2.5 ML BOTTLE OP SCH (21:44)
[2021-09-19] VITALS: BP 157/79
[2021-09-19 04:00] VITALS: BP 145/64
--- NOTE | 2021-09-19 06:37 | NUR ---
RN NOTE PATIENT REMAINS ON ALERT ORIENTED X2 VERBALLY RESPONSIVE ON 4L OXYGEN VIA NASAL CANNULA O2:96-98% NO SOB NOT ACUTE DISTRESS NOTED,ALL DUE MEDS GIVEN MD ORDERED KEPT CLEAN AND DRY ALL THE TIME,ALL NEEDS MET ENDORSE NEXT COMING SHIFT FOR CONTINUATION OF CARE.
[2021-09-19 07:22] LABS: BASOPHILS % (AUTO) 0.4 % (0.0-2.0); EOSINOPHILS % (AUTO) 1.4 % (0.0-6.0); HEMATOCRIT 33 % (33-45); HEMOGLOBIN 10.8 g/dL (11.5-14.8); LYMPHOCYTES # (AUTO) 1.9 K/uL (0.8-4.8); LYMPHOCYTES % (AUTO) 17.1 % (20.0-44.0); MEAN CORPUSCULAR HGB CONC 33 g/dl (31.0-36.0); MEAN CORPUSCULAR VOLUME 100 fL (82-100); MONOCYTES # (AUTO) 0.6 K/uL (0.1-1.30); MONOCYTES % (AUTO) 5.8 % (2.0-12.0); NEUTROPHILS # (AUTO) 8.3 K/uL (1.8-8.9); NEUTROPHILS % (AUTO) 75.3 % (43.0-81.0); PLATELET COUNT (AUTO) 129 K/uL (150-450); RED BLOOD CELL COUNT(AUTO) 3.25 MIL/uL (4.0-5.2)
[2021-09-19 07:54] LABS: CALCIUM, SERUM 8.8 mg/dL (8.5-10.1); CREATININE 0.6 mg/dL (0.6-1.3); POTASSIUM 3.9 mmol/L (3.5-5.1)
[2021-09-19] MEDS: LamoTRIgine 100 MG TABLET PO SCH ×4 (08:24→17:46)
[2021-09-19] MEDS: DOCUSATE SODIUM 100 MG CAPSULE PO SCH ×3 (08:24→17:47)
[2021-09-19] MEDS: CEFTRIAXONE 2 G in IV D5W 100 ML IV SCH (08:24)
[2021-09-19] MEDS: PANTOPRAZOLE 40 MG TABLET.DR PO SCH (08:24)
[2021-09-19] MEDS: CHLORHEXIDINE GLUCONATE 15 ML UDC MM SCH ×2 (08:24→17:47)
[2021-09-19] MEDS: DIVALPROEX SODIUM 250 MG TABLET.DR PO SCH ×4 (08:24→17:46)
[2021-09-19] MEDS: ENSURE ENLIVE 237 ML LIQUID (VANILLA) PO SCH ×2 (08:25→17:47)
[2021-09-19 12:00] VITALS: BP 127/61
[2021-09-19 16:10] LABS: BAND % (MANUAL) 4 % (0.0-5.0); EOSINOPHILS % (MANUAL) 2 % (0-4); LYMPHOCYTES % (MANUAL) 13 % (16-48); MONOCYTES % (MANUAL) 8 % (0-11.0); NEUTROPHILS % (MANUAL) 73 (42-76)
[2021-09-19] MEDS ORDERED: CEFT2VIA14 IV ×2 (17:36→17:40)
--- NOTE | 2021-09-19 18:44 | NUR ---
RN NOTE SPOKE TO NURSE AT [facility]. TECHNICAL PROGRAM MANAGER TIME AT 1900. PT WILL GO HOME WITH ROCEPHIN X7 DAYS 2GM IV. QUARLES WILL BE REMOVED. MIDLINE WILL NOT BE REMOVED.
--- NOTE | 2021-09-19 19:25 | NUR ---
RN NOTE [facility] 225 PU PT 193. QUARLES REMOVED. MIDLINE INTACT. PT 4L SAT >95%. BRACE WAS TAKEN BY RESCUE TEAM
== END 2021-09-19 20:35 | DRG 871 ==
LOC: ER 01:44 → MEDSG1 09:42 → TELE1 17:51 → MEDSG1 09-13 08:01 → TELE-TD 09-16 00:18 → TELE1 09-18 11:57
PROVIDERS: ADMIT Nurse Practitioner Acute Care; ATTEND Nurse Practitioner Acute Care
PROC: 05H533Z Insertion of Infusion Device into Right Subclavian Vein, Percutaneous Approach (ICD-10-PCS; principal; 2021-09-16)
PROC: B546ZZA Ultrasonography of Right Subclavian Vein, Guidance (ICD-10-PCS; 2021-09-16)
PROC: 05H533Z Insertion of Infusion Device into Right Subclavian Vein, Percutaneous Approach (ICD-10-PCS; 2021-09-16)
PROC: B546ZZA Ultrasonography of Right Subclavian Vein, Guidance (ICD-10-PCS; 2021-09-16)
DX: A41.9 Sepsis, unspecified organism (principal); J15.9 Unspecified bacterial pneumonia; M48.56XA Collapsed vertebra, not elsewhere classified, lumbar region, initial encounter for fracture; S32.2XXA Fracture of coccyx, initial encounter for closed fracture; N13.6 Pyonephrosis; G40.909 Epilepsy, unspecified, not intractable, without status epilepticus; W01.0XXA Fall on same level from slipping, tripping and stumbling without subsequent striking against object, initial encounter; Y93.9 Activity, unspecified; Z87.442 Personal history of urinary calculi; I10 Essential (primary) hypertension; K59.00 Constipation, unspecified; Z91.81 History of falling; S89.91XA Unspecified injury of right lower leg, initial encounter; X58.XXXA Exposure to other specified factors, initial encounter; Y92.129 Unspecified place in nursing home as the place of occurrence of the external cause; B96.20 Unspecified Escherichia coli [E. coli] as the cause of diseases classified elsewhere
CPT/HCPCS: 36410; 36415; 36600; 70450-TC; 71045-TC; 72131-TC; 72148-TC; 80048-TC; 80164-TC; 80175; 81001; 82962-TC; 83735-TC; 84100-TC; 85025-TC; 85730-TC; 87040-TC; 87081-TC; 87086-TC; 87186-TC; 93307-TC; 97110-TC; 97112-TC; 97116-TC; 97530-TC; A4217; C9803; G0378; J0696; J2060; J2270; J2405; J3490; J7030; J7050; J7060; Q9967